=== PATIENT | male | born 1955 | race Caucasian/White ===

== ENCOUNTER 2018-02-03 06:46 | Day surgery (SDC) | payer OTHER ==
[~2018-02-03] VITALS: Ht 182.9 cm; Wt 107.0 kg
== END 2018-02-03 08:55 | disposition home or self-care (01) ==
LOC: ORSCSDS 06:46
PROVIDERS: Surgery
PROC: 0DJD8ZZ Inspection of Lower Intestinal Tract, Via Natural or Artificial Opening Endoscopic (ICD-10-PCS; principal; 2018-02-03 08:00)
DX: Z12.11 Encounter for screening for malignant neoplasm of colon (principal); R73.9 Hyperglycemia, unspecified; E78.5 Hyperlipidemia, unspecified; E66.9 Obesity, unspecified; Z68.31 Body mass index [BMI] 31.0-31.9, adult
CPT/HCPCS: J0330; J1980; J2405; J7120

== ENCOUNTER → 2023-02-23 | Outpatient (CLI) | payer MEDICARE, OTHER | LOC: LAB SHORT 09:50 → LAB 09:50 | DX: D04.62 Carcinoma in situ of skin of left upper limb, including shoulder (principal); D23.39 Other benign neoplasm of skin of other parts of face | CPT/HCPCS: 88305 ==

== ENCOUNTER → 2024-08-30 | Outpatient (CLI) | payer MEDICARE, OTHER ==
[2024-08-30 23:44] LABS: Campylobacter Sp Not Detected (NOT DETECT); E. Coli O157 Not Detected (NOT DETECT); Enteroaggregative E. coli-EAEC Not Detected (NOT DETECT); Enteropathogenic E. coli-EPEC Not Detected (NOT DETECT); Enterotoxigenic E. coli-ETEC Not Detected (NOT DETECT); Salmonella Sp Not Detected (NOT DETECT); Shiga Toxin-prod E. coli-STEC Not Detected (NOT DETECT); Shigella/Enteroin E. coli-EIEC Not Detected (NOT DETECT); Vibrio Sp Not Detected (NOT DETECT)
== END ==
LOC: LAB SHORT 17:29 → LAB 17:29
PROVIDERS: Internal Medicine
DX: R19.7 Diarrhea, unspecified (principal)
CPT/HCPCS: 87507